=== PATIENT | female | born 1960 | race African-American/Black ===

== ENCOUNTER 2020-12-04 20:56 | Inpatient (IN) | payer OTHER ==
[2020-12-04 21:52] LABS: #Eosinphils 0.2 10x3/uL (0.0-0.5); #Monocytes 0.6 10x3/uL (0.0-1.1); #Neutrophils 3.6 10x3/uL (1.5-8.4); %Basophils 0.6 % (0.0-2.0); %Eosinophils 2.6 % (0.0-6.0); %Lymphocytes 30.2 % (18.0-47.0); %Monocytes 8.8 % (0.0-10.0); %Neutrophils 57.5 % (40.0-75.0); Hemoglobin 8.8 g/dL (12.0-15.5); Mean Corpuscular Volume 96.9 fl (81.6-98.3); Mean Platelet Volume 10.7 fl (7.4-10.4); Platelet Count 209 10x3/uL (150-450); Red Blood Cell (RBC) Count 2.93 10x6/uL (3.90-5.03); White Blood Cell (WBC) Count 6.3 10x3/uL (3.5-10.5)
[2020-12-04 22:06] LABS: ALT (SGPT) 66 U/L (8-55); AST (SGOT) 33 U/L (5-34); Albumin 3.3 g/dL (3.5-5.0); Alkaline Phosphatase 159 U/L (40-110); Anion Gap 9 mmol/L (10-20); BUN (Urea Nitrogen) 32 mg/dL (9.8-20.1); Bilirubin, Total 0.3 mg/dL (0.2-1.2); Calc. Creatinine Clearance 0 mL/min (70-130); Calcium 8.7 mg/dL (7.8-10.44); Carbon Dioxide 30 mmol/L (22-29); Chloride 103 mmol/L (98-107); Globulin 3.7 g/dL (2.4-3.5); Glucose 194 mg/dL (70-105); Potassium 4.1 mmol/L (3.5-5.1); Sodium 138 mmol/L (136-145)
[2020-12-04 22:40] LABS: Acetaminophen Less than 6.0 mcg/mL (10.0-30.0); Alcohol Less than 10 mg/dL (Less than 10); Salicylate Less than 8.0 mg/dL (15.0-30.0)
[2020-12-04] MEDS ORDERED: Furosemide 40 MG/4 ML VIAL ONE (23:02)
[2020-12-04 23:22] LABS: Amphetamine Not Detected (NotDetected); Barbiturates Screen Not Detected (NotDetected); Benzodiazepine Screen Not Detected (NotDetected); Cocaine Metabolite Screen Not Detected (NotDetected); Methadone Not Detected (NotDetected); Methamphetamine Not Detected (NotDetected); Opiate Screen Not Detected (NotDetected); Oxycodone Screen Not Detected (NotDetected); Phencyclidine (PCP) Not Detected (NotDetected); THC/Cannabinoid Screen Not Detected (NotDetected); Tricyclic Screen Detected (NotDetected)
[2020-12-05 00:37] LABS: SARS-CoV-2 NAA Rapid Test Not Detected (NotDetected)
[2020-12-05] MEDS ORDERED: Aspirin Chewable 81 MG TAB PO SCH ×2 (00:45→09:00)
[2020-12-05 03:45] VITALS: BMI 32.9
[2020-12-05 04:11] LABS: #Basophils 0.1 10x3/uL (0.0-0.2); #Eosinphils 0.2 10x3/uL (0.0-0.5); #Monocytes 0.6 10x3/uL (0.0-1.1); #Neutrophils 3.8 10x3/uL (1.5-8.4); %Basophils 0.9 % (0.0-2.0); %Eosinophils 2.9 % (0.0-6.0); %Lymphocytes 29.8 % (18.0-47.0); %Monocytes 8.5 % (0.0-10.0); %Neutrophils 57.7 % (40.0-75.0); Hemoglobin 8.8 g/dL (12.0-15.5); Mean Corpuscular HGB CONC 31.2 g/dL (32.0-36.0); Mean Corpuscular Hemoglobin 30.6 pg (27.0-33.0); Mean Corpuscular Volume 97.9 fl (81.6-98.3); Mean Platelet Volume 10.7 fl (7.4-10.4); Platelet Count 208 10x3/uL (150-450); RBC Distribution Width 15.9 % (11.5-14.5); Red Blood Cell (RBC) Count 2.88 10x6/uL (3.90-5.03); White Blood Cell (WBC) Count 6.6 10x3/uL (3.5-10.5)
[2020-12-05 04:13] LABS: Magnesium 1.8 mg/dL (1.6-2.6); Uric Acid 5.9 mg/dL (2.6-6.0)
[2020-12-05] MEDS: Acetaminophen 325 MG TAB PO PRN (06:23)
[2020-12-05] MEDS: Furosemide 40 MG/4 ML VIAL SLOW IVP SCH ×2 (06:24→14:00)
[2020-12-05] MEDS: Nitroglycerin 2% Ointment 1 INCH/1 GM Packet TOP SCH ×3 (06:24→21:03)
[2020-12-05] MEDS ORDERED: Nitroglycerin 2% Ointment 1 INCH/1 GM Packet ONE (06:27)
[2020-12-05 06:40] LABS: Anion Gap 11 mmol/L (10-20); BUN (Urea Nitrogen) 31 mg/dL (9.8-20.1); Calc. Creatinine Clearance 62 mL/min (70-130); Calcium 8.9 mg/dL (7.8-10.44); Carbon Dioxide 28 mmol/L (22-29); Chloride 102 mmol/L (98-107); Glucose 200 mg/dL (70-105); Magnesium 1.7 mg/dL (1.6-2.6); Potassium 3.9 mmol/L (3.5-5.1); Sodium 137 mmol/L (136-145)
[2020-12-05] MEDS ORDERED: FLU VACC QS2020-21(6MOS UP)/PF 60 MCG/0.5 ML SYRINGE IM ONE (08:15)
[2020-12-05] MEDS ORDERED: Losartan 25 MG TAB PO SCH (09:00)
[2020-12-05] MEDS: Divalproex Sodium DR 500 MG TAB PO SCH ×2 (09:18→21:03)
[2020-12-05] MEDS: Carvedilol 3.125 MG TAB PO SCH ×2 (09:18→21:03)
[2020-12-05] MEDS: Enoxaparin Sodium 40 MG/0.4 ML SYRINGE SC SCH (09:19)
[2020-12-05] MEDS ORDERED: Atorvastatin Calcium 20 MG TAB PO SCH (21:00)
[2020-12-06] MEDS: Acetaminophen 325 MG TAB PO PRN (02:09)
[2020-12-06 06:25] LABS: Anion Gap 12 mmol/L (10-20); BUN (Urea Nitrogen) 32 mg/dL (9.8-20.1); Calc. Creatinine Clearance 63 mL/min (70-130); Calcium 8.5 mg/dL (7.8-10.44); Carbon Dioxide 28 mmol/L (22-29); Chloride 101 mmol/L (98-107); Glucose 203 mg/dL (70-105); Potassium 3.9 mmol/L (3.5-5.1); Sodium 137 mmol/L (136-145)
[2020-12-06] MEDS: Nitroglycerin 2% Ointment 1 INCH/1 GM Packet TOP SCH (06:34)
[2020-12-06] MEDS: Furosemide 40 MG/4 ML VIAL SLOW IVP SCH (06:34)
[2020-12-06] MEDS ORDERED: TORSEMIDE 5 MG PO SCH (07:30)
[2020-12-06] MEDS: risperiDONE 1 MG TAB PO SCH ×2 (09:04→20:14)
[2020-12-06] MEDS: Spironolactone 25 MG TAB PO SCH (09:05)
[2020-12-06] MEDS: Aspirin Chewable 81 MG TAB PO SCH (09:05)
[2020-12-06] MEDS: Divalproex Sodium DR 500 MG TAB PO SCH ×2 (09:05→20:15)
[2020-12-06] MEDS: Aripiprazole 10 MG TAB PO SCH (09:05)
[2020-12-06] MEDS: Benztropine 1 MG TAB PO SCH ×2 (09:05→20:14)
[2020-12-06] MEDS: Haloperidol 5 MG TAB PO SCH ×2 (09:06→20:13)
[2020-12-06] MEDS: Enoxaparin Sodium 40 MG/0.4 ML SYRINGE SC SCH (09:06)
[2020-12-06] MEDS ORDERED: Senokot S 8.6-50 MG TAB PO PRN (14:51)
[2020-12-06] MEDS ORDERED: Furosemide 40 MG/4 ML VIAL SLOW IVP SCH (15:00)
[2020-12-06] MEDS ORDERED: Polyethylene Glycol 3350 17 GM Packet PO SCH (15:00)
[2020-12-06] MEDS ORDERED: Promethazine HCl 25 MG/ML VIAL IVPB PRN (17:41)
[2020-12-06] MEDS ORDERED: Promethazine HCl 25 MG/ML VIAL SLOW IVP PRN (18:15)
[2020-12-06] MEDS ORDERED: Divalproex Sodium DR 500 MG TAB ONE ×3 (19:43→19:44)
[2020-12-06] MEDS ORDERED: Lantus 1000 UNITS/10 ML VIAL SC SCH (21:00)
[2020-12-06] MEDS ORDERED: Atorvastatin Calcium 10 MG TAB PO SCH (21:00)
[2020-12-07 05:23] LABS: #Basophils 0.1 10x3/uL (0.0-0.2); #Eosinphils 0.5 10x3/uL (0.0-0.5); #Monocytes 0.7 10x3/uL (0.0-1.1); #Neutrophils 3.2 10x3/uL (1.5-8.4); %Basophils 0.8 % (0.0-2.0); %Eosinophils 7.6 % (0.0-6.0); %Lymphocytes 29.7 % (18.0-47.0); %Monocytes 10.8 % (0.0-10.0); %Neutrophils 50.6 % (40.0-75.0); Hemoglobin 8.3 g/dL (12.0-15.5); Mean Corpuscular HGB CONC 30.7 g/dL (32.0-36.0); Mean Corpuscular Hemoglobin 30.3 pg (27.0-33.0); Mean Corpuscular Volume 98.5 fl (81.6-98.3); Mean Platelet Volume 10.4 fl (7.4-10.4); Platelet Count 243 10x3/uL (150-450); Red Blood Cell (RBC) Count 2.74 10x6/uL (3.90-5.03); White Blood Cell (WBC) Count 6.3 10x3/uL (3.5-10.5)
[2020-12-07 05:27] LABS: Anion Gap 11 mmol/L (10-20); BUN (Urea Nitrogen) 31 mg/dL (9.8-20.1); Calc. Creatinine Clearance 62 mL/min (70-130); Calcium 8.4 mg/dL (7.8-10.44); Carbon Dioxide 30 mmol/L (22-29); Chloride 101 mmol/L (98-107); Glucose 240 mg/dL (70-105); Potassium 3.9 mmol/L (3.5-5.1); Sodium 138 mmol/L (136-145)
[2020-12-07] MEDS: Furosemide 40 MG/4 ML VIAL SLOW IVP SCH ×2 (06:06→13:37)
[2020-12-07] MEDS: Haloperidol 5 MG TAB PO SCH (08:05)
[2020-12-07] MEDS: risperiDONE 1 MG TAB PO SCH (08:05)
[2020-12-07] MEDS: Aripiprazole 10 MG TAB PO SCH (08:05)
[2020-12-07] MEDS: Benztropine 1 MG TAB PO SCH (08:05)
[2020-12-07] MEDS: Divalproex Sodium DR 500 MG TAB PO SCH (08:06)
[2020-12-07] MEDS: Spironolactone 25 MG TAB PO SCH (08:06)
[2020-12-07] MEDS: Aspirin Chewable 81 MG TAB PO SCH (08:06)
[2020-12-07] MEDS: Enoxaparin Sodium 40 MG/0.4 ML SYRINGE SC SCH (08:13)
[2020-12-07] MEDS ORDERED: Polyethylene Glycol 3350 17 GM Packet PO SCH (09:00)
[2020-12-07 12:04] VITALS: BP 131/65; TEMP 98.1
[2020-12-07] MEDS: Acetaminophen 325 MG TAB PO PRN (13:36)
== END 2020-12-07 17:09 | disposition home or self-care (01) | DRG 291 ==
LOC: CSHERS 20:56 → CSHTELE 12-05 00:38 → UNDOADMIN 12-05 02:09 → CSHTELE 12-05 02:09
PROVIDERS: ADMIT Family Medicine; ATTEND Family Medicine
DX: I13.0 Hypertensive heart and chronic kidney disease with heart failure and stage 1 through stage 4 chronic kidney disease, or unspecified chronic kidney disease (principal); I50.41 Acute combined systolic (congestive) and diastolic (congestive) heart failure; J96.21 Acute and chronic respiratory failure with hypoxia; N18.31 Chronic kidney disease, stage 3a; E11.22 Type 2 diabetes mellitus with diabetic chronic kidney disease; Z20.822 Contact with and (suspected) exposure to COVID-19; G40.309 Generalized idiopathic epilepsy and epileptic syndromes, not intractable, without status epilepticus; D63.1 Anemia in chronic kidney disease; F17.210 Nicotine dependence, cigarettes, uncomplicated; F25.9 Schizoaffective disorder, unspecified; E78.5 Hyperlipidemia, unspecified; Z90.710 Acquired absence of both cervix and uterus; Z79.82 Long term (current) use of aspirin; Z79.4 Long term (current) use of insulin; Z79.899 Other long term (current) drug therapy; F41.9 Anxiety disorder, unspecified; Z89.021 Acquired absence of right finger(s); D64.9 Anemia, unspecified
CPT/HCPCS: 36416; 71045; 72100; 80048; 80053; 80306; 80307; 83735; 83880; 84443; 84484; 84550; 85025; 93005; 93010; 93306; 94760; 96374; J1650; J1815; J1940; J2550; U0002

== ENCOUNTER 2021-01-17 23:55 | Emergency (ER) | payer OTHER ==
[2021-01-18 00:36] LABS: #Eosinphils 0.2 10x3/uL (0.0-0.5); #Neutrophils 4.4 10x3/uL (1.5-8.4); %Basophils 0.5 % (0.0-2.0); %Eosinophils 1.7 % (0.0-6.0); %Lymphocytes 36.4 % (18.0-47.0); %Monocytes 10.8 % (0.0-10.0); Hemoglobin 11.8 g/dL (12.0-15.5); Mean Corpuscular HGB CONC 32.7 g/dL (32.0-36.0); Mean Corpuscular Hemoglobin 30.3 pg (27.0-33.0); Mean Corpuscular Volume 92.8 fl (81.6-98.3); Mean Platelet Volume 11.3 fl (7.4-10.4); Platelet Count 202 10x3/uL (150-450); RBC Distribution Width 13.8 % (11.5-14.5); Red Blood Cell (RBC) Count 3.89 10x6/uL (3.90-5.03); White Blood Cell (WBC) Count 8.8 10x3/uL (3.5-10.5)
[2021-01-18] MEDS ORDERED: OLANZapine 5 MG TAB PO SCH (00:45)
[2021-01-18 00:51] LABS: Acetaminophen Less than 6.0 mcg/mL (10.0-30.0); Alcohol Less than 10 mg/dL (Less than 10); Salicylate Less than 8.0 mg/dL (15.0-30.0)
[2021-01-18 00:53] LABS: ALT (SGPT) 14 U/L (8-55); AST (SGOT) 14 U/L (5-34); Albumin 3.7 g/dL (3.5-5.0); Alkaline Phosphatase 141 U/L (40-110); Anion Gap 17 mmol/L (10-20); BUN (Urea Nitrogen) 44 mg/dL (9.8-20.1); Bilirubin, Total 0.2 mg/dL (0.2-1.2); Calc. Creatinine Clearance 0 mL/min (70-130); Calcium 9.3 mg/dL (7.8-10.44); Carbon Dioxide 24 mmol/L (22-29); Chloride 102 mmol/L (98-107); Globulin 4.5 g/dL (2.4-3.5); Glucose 139 mg/dL (70-105); Potassium 5.3 mmol/L (3.5-5.1); Protein, Total 8.2 g/dL (6.0-8.3); Sodium 138 mmol/L (136-145)
[2021-01-18] MEDS ORDERED: OLANZapine 2.5 MG TAB ONE (01:06)
[2021-01-18 01:33] LABS: Bilirubin Neg (Negative); Blood, Urine 50 (Negative); Clarity Slightly Cloudy (Clear); Glucose, Urine (Dipstick) Normal (Negative); Ketone, Urine Negative (Negative); Leukocyte 500 (Negative); Nitrite Negative (Negative); Protein, Urine (Dipstick) 100 mg/dl (Neg-Trace); Specific Gravity, Urine 1.005 (1.002-1.036); Urobilinogen Normal mg/dL (Less than 2)
[2021-01-18 01:40] LABS: Amphetamine Not Detected (NotDetected); Barbiturates Screen Not Detected (NotDetected); Benzodiazepine Screen Not Detected (NotDetected); Cocaine Metabolite Screen Not Detected (NotDetected); Methadone Not Detected (NotDetected); Methamphetamine Not Detected (NotDetected); Opiate Screen Not Detected (NotDetected); Oxycodone Screen Not Detected (NotDetected); Phencyclidine (PCP) Not Detected (NotDetected); THC/Cannabinoid Screen Not Detected (NotDetected); Tricyclic Screen Detected (NotDetected)
[2021-01-18 01:41] LABS: Bacteria/HPF 2+ HPF (None Seen); RBC/HPF 0-3 HPF (0-3)
[2021-01-18 01:42] LABS: Other Microscopic Description Less than 2 mL rec'd
== END 2021-01-18 02:04 | disposition home or self-care (01) ==
LOC: CSHERS 23:55
DX: F30.9 Manic episode, unspecified (principal); N39.0 Urinary tract infection, site not specified; I11.0 Hypertensive heart disease with heart failure; I50.9 Heart failure, unspecified; E11.9 Type 2 diabetes mellitus without complications; E78.5 Hyperlipidemia, unspecified; F17.210 Nicotine dependence, cigarettes, uncomplicated; Z79.4 Long term (current) use of insulin; Z79.82 Long term (current) use of aspirin; Z79.899 Other long term (current) drug therapy
CPT/HCPCS: 80053; 80306; 80307; 81003; 81015; 85025; 99284